=== PATIENT | female | born 1985 | race Hispanic/Latino ===

== ENCOUNTER 2024-07-23 21:18 | Emergency (ER) | payer OTHER ==
[~2024-07-23] VITALS: Ht 134.6 cm; Wt 93.0 kg
[2024-07-23 22:05] VITALS: PULSE 72; RESP 18; TEMP 97; O2SAT 100
== END 2024-07-23 22:42 | disposition home or self-care (01) ==
LOC: ER 21:22
DX: K08.89 Other specified disorders of teeth and supporting structures (principal); K04.7 Periapical abscess without sinus; E11.9 Type 2 diabetes mellitus without complications; E03.9 Hypothyroidism, unspecified
CPT/HCPCS: 99283